=== PATIENT | female | born 1955 | race Caucasian/White ===

== ENCOUNTER → 2018-09-13 | Outpatient (CLI) | payer BC ==
[~2018-09-13] MED LIST: ASPI-715 PO; NO ROUTINE MEDS
--- NOTE | 2018-09-13 11:18 | RADIOLOGY IMAGING REPORT ---
FACILITY: [facility] PATIENT NAME: TRAE AQUINO : [id number] MR: [id number] V: [id number] EXAM DATE: ORDERING PHYSICIAN: EVARISTO KING TECHNOLOGIST: Martha Dumont PROCEDURE:BILATERAL DIGITAL SCREENING MAMMOGRAM WITH CAD ASSISTED INTERPRETATION & 3D TOMOSYNTHESIS COMPARISON:Prior mammograms 08/23/17, 04/20/16, 02/18/15, 01/20/14, 09/17/12. INDICATIONS:screening FINDINGS: Moderately dense fibroglandular tissue is seen throughout the breasts. The parenchymal pattern has remained stable allowing for difference in mammographic technique & patient positioning. There is no evidence of malignant appearing mass, malignant appearing calcifications or other secondary sign of malignancy in either breast. DIAGNOSTIC CATEGORY 1--NEGATIVE. RECOMMENDATIONS: ROUTINE MAMMOGRAM AND CLINICAL EVALUATION. IMPRESSION: BIRADS 1: Negative. No significant abnormality is seen. Dictated by: Jazzy Lacy M.D. on 09/13/2018 at 10:45 Transcribed by: TERE on 09/13/2018 at 10:56 Approved by: Jazzy Lacy M.D. on 09/13/2018 at 11:18 [facility]
== END ==
LOC: MAMO 00:33
PROVIDERS: ATTEND Obstetrics & Gynecology
DX: Z12.31 Encounter for screening mammogram for malignant neoplasm of breast (principal); Z80.3 Family history of malignant neoplasm of breast
CPT/HCPCS: 77063; 77067